=== PATIENT | female | born 1980 | race Caucasian/White ===

== ENCOUNTER 2016-06-10 08:04 | Outpatient (RCR) | payer MEDICAID ==
[~2016-06-10 08:04] MED LIST: ACET-2267 PO; ACHD5005 PO; ALDACTONE25 MG; AMOX500C2 PO; ATIVAN PO; BUDE10.2 IH; CETI10TA17 PO; CHOL4PAC17 PO; CHOL4PAC19 PO; CLON0.5T3 PO; CLON1TAB36 PO; CLONAZEPAM; CPR500T PO; CYCL10TA9 PO; DCS100C PO; DICY10CA26 PO; DICY20TA57 PO; DIME50TA PO; DIPH1TAB PO; DULO60CA6 PO; FLUO20CA42 PO; FLUT16SP22 NS; FLUT1DIS26 IH; FURO40TA4 PO; GUAI5SYR PO; HYDR-2890 PO; HYDR-34 PO; HYDR-3720 PO; HYDR118S10 PO; HYDR1CAP2 PO; HYDR25CA5 PO; HYDR50CA PO; IBP600T1 PO; IBUP-30 PO; LISI10TA2 PO; LORA1TAB PO; MELA1TAB9 PO; METO-333 PO; METO-354 PO; METO100T2 PO; MONT10TA21 PO; MTP25TSR; NAPR-243 PO; NF-XOP-HFA IH; OXYC1TAB87 PO; PARO20TA5 PO; PNT40TEC PO; POTA20TA8 PO; PRCD5U PO; PRM25T PO; PROP10TA8 PO; RT-ALBUINH IH; TRAM50TA2 PO; TRIAMTERENE/HCTZ
== END 2016-09-08 | disposition home or self-care (01) ==
LOC: PULM 08:04
PROVIDERS: ATTEND Internal Medicine Critical Care Medicine
DX: J96.11 Chronic respiratory failure with hypoxia (principal)
CPT/HCPCS: 99211

== ENCOUNTER → 2016-10-14 | Outpatient (CLI) | payer MEDICAID ==
[2016-10-14 08:41] LABS: CALCIUM 9.4 MG/DL (8.5-10.1); CREATININE SERUM 1.09 MG/DL (0.60-1.30); POTASSIUM 3.1 MMOL/L (3.6-5.0)
== END ==
LOC: LAB 08:08
PROVIDERS: ATTEND Internal Medicine Critical Care Medicine
DX: I27.0 Primary pulmonary hypertension (principal); Z79.899 Other long term (current) drug therapy
CPT/HCPCS: 36415; 80048

== ENCOUNTER 2018-08-27 08:39 | Emergency (ER) | payer MEDICAID ==
[~2018-08-27] VITALS: Ht 175.3 cm; Wt 140.6 kg
[~2018-08-27 08:39] MED LIST changes: +METO100T12 PO; -METO100T2 PO
--- NOTE | 2018-08-27 10:06 | ED Abdominal Pain ---
General Chief Complaint: Abdominal/GI Problems Stated Complaint: RECTAL BLEEDING;ABD PAIN Nursing Triage Note: pt presents to ed with complaints of abdominal pain, constipation, and rectal bleeding starting last night. pt reports she struggled passing a bowel movement yesterday evening and now has rectal bleeding. Sepsis Screen: No Definite Risk Source of Information: Patient Exam Limitations: No Limitations History of Present Illness Date Seen by Provider: Aug 27, 2018 Time Seen by Provider: 09:56 Initial Comments Here with report of lower abdominal pain and constipation return to diarrhea this morning. Reports passing blood in her stool late yesterday and early this morning. Has had history of C. difficile in the past and is currently under evaluation for that. Bleeding is not persistent. She states that she just does not feel well. She is here with her mother who is also sick. She has been caring for her sick mother for the last 2 weeks that she has been in and out of the hospital. Does have some nausea. Blood started after a large bowel movement after she had been constipated. Timing/Duration: 1-2 Days Severity/Quality: Mild, Moderate, Cramping Location: Generalized Abdomen Radiation: No Radiation Activities at Onset: None Modifying Factors: Improves With Defecating; Worsens With Eating; Improves With Resting Associated Symptoms: No Back Pain, No Chest Pain, No Fever/Chills, No Shortness of Air, No Weakness Allergies and Home Medications Allergies Coded Allergies: diclofenac (Unverified Allergy, Unknown, 03/10/14) ketorolac tromethamine (Unverified Allergy, Unknown, 03/10/14) meloxicam (Verified Allergy, Unknown, 03/10/14) amitriptyline (Verified Adverse Reaction, Unknown, DOESN'T REMEMBER REACTION, 03/10/14) buspirone (Verified Adverse Reaction, Unknown, DOESN'T WORK, 03/10/14) hydromorphone (Verified Adverse Reaction, Unknown, MEMORY LOSS, , 03/10/14) Uncoded Allergies: "MOST NSAIDS" (Allergy, Unknown, 03/10/14) Home Medications Acetaminophen 500 Mg Tablet, 1,000 MG PO Q6H PRN for PAIN, (Reported) TAKES 2 (500MG) TABLETS Albuterol Sulfate 8.5 Gm Hfa.aer.ad, 2 PUFF IH Q4H PRN for SHORTNESS OF BREATH, (Reported) Budesonide/Formoterol Fumarate 10.2 Gm Hfa.aer.ad, 2 PUFF IH BID, (Reported) Cetirizine HCl 10 Mg Tablet, 10 MG PO DAILY, (Reported) Dimenhydrinate 50 Mg Tab.chew, 100 MG PO HS, (Reported) Diphenoxylate HCl/Atropine 1 Each Tablet, 1 TAB PO Q6H, (Reported) Fluticasone Propionate 16 Gm Flomot.susp, 2 SPRAYS NS DAILY PRN for DRAINAGE, ( Reported) Fluticasone/Salmeterol 1 Each Blst.w.dev, 1 PUFF IH BID, (Reported) Furosemide 40 Mg Tablet, 40 MG PO DAILY, (Reported) Ibuprofen 200 Mg Tablet, 800 MG PO DAILY PRN for PAIN, (Reported) TAKES 4 (200MG) TABLETS Lisinopril 10 Mg Tablet, 10 MG PO HS, (Reported) Melatonin/Pyridoxine HCl (B6) 1 Each Tablet, 1 MG PO HS PRN for SLEEP, (Reported ) Metoprolol Tartrate 100 Mg Tablet, 100 MG PO BID, (Reported) Montelukast Sodium 10 Mg Tablet, 10 MG PO DAILY, (Reported) Ondansetron 4 Mg Tab.rapdis, 4 MG PO Q6H PRN for NAUSEA/VOMITING Prescribed by: SANAM VAN on 08/27/18 1227 Paroxetine HCl 20 Mg Tablet, 20 MG PO HS, (Reported) Potassium Chloride 20 Meq Tab.er.prt, 20 MEQ PO DAILY, (Reported) Patient Home Medication List Home Medication List Reviewed: Yes Review of Systems Review of Systems Constitutional: see HPI; No chills, No fever; weakness EENTM: No Symptoms Reported Respiratory: No Symptoms Reported Cardiovascular: Denies Chest Pain, Denies Edema Gastrointestinal: Abdominal Pain, Blood Streaked Stools, Constipated, Diarrhea , Nausea Genitourinary: No Symptoms Reported Musculoskeletal: no symptoms reported Skin: no symptoms reported Psychiatric/Neurological: No Symptoms Reported All Other Systems Reviewed Negative Unless Noted: Yes Past [id number]-[id number] Hx Past Med/Social Hx: Reviewed Nursing Past Med/Soc Hx Patient Social History Alcohol Use: Denies Use Recreational Drug Use: No (TOBACCO) Smoking Status: Former Smoker Former Smoker, Quit: Aug 13, 2018 Recent Foreign Travel: No Contact w/Someone Who Travel: No Recent Infectious Disease Expo: No Physical Abuse: No Sexual Abuse: No Mistreated: No Fear: No Immunizations Up To Date Date of Pneumonia Vaccine: Aug 11, 2011 Date of Influenza Vaccine: May 11, 2011 Seasonal Allergies Seasonal Allergies: No Past Medical History Surgeries: Yes (RIGHT KNEE) Gallbladder, Hysterectomy, Orthopedic Respiratory: Yes (PULM HYPERTENSION) Asthma Cardiac: Yes (R BBB, LEAKY VALVE, congestive heart failure) High Cholesterol, Hypertension Neurological: No Reproductive Disorders: Yes (CHRONIC PELVIC PAIN , DUB/DYSMENORRHEA) BUSINESS CONTINUITY SPECIALIST History: Hysterectomy Gastrointestinal: Yes (MAL ABSORBTION, relapsing c-diff, ) Colitis, Gastroesophageal Reflux, Perez's Esophagus Musculoskeletal: Yes (SELF-DIAGNOSIS OF RLS) Fibromyalgia, Scoliosis, Chronic Back Pain Endocrine: Yes (OBESITY) Cancer: No Psychosocial: Yes (EXTENSIVE PSYCH ISSUES) Anxiety, Bipolar, Personality Disorder, Depression Integumentary: No Blood Disorders: No Family Medical History Reviewed Nursing Family Hx Abdominal aortic aneurysm 19 MOTHER Family history: Arthritis 19 MOTHER Family history: Cardiovascular disease G8 SISTER Family history: Diabetes mellitus 19 MOTHER Family history: Hypertension 19 FATHER 19 MOTHER Heart disease 19 MOTHER G8 SISTER Stroke 19 MOTHER No Family History of: Alcoholism Cancer Family history: Alzheimer's disease Family history: Asthma Family history: Breast disease Family history: Gastrointestinal disease Family history: Thyroid disorder Hereditary disease History of - anemia History of - respiratory disease Kidney disease Myocardial infarction Parkinson's disease Psychotic disorder Seizure disorder Physical Exam Vital Signs Vital Signs - First Documented 08/27/18 09:31 Temp 98.1 Pulse 65 Resp 20 B/P (MAP) 118/61 (80) Pulse Ox 97 Capillary Refill : Less Than 3 Seconds Height/Weight/BMI Height: 5'9.00" Weight: 310lbs. oz. [id number]; 37.59 BMI Method:Stated General Appearance: WD/WN, no apparent distress HEENT: PERRL/EOMI, pharynx normal Neck: full range of motion, supple Respiratory: lungs clear, normal breath sounds Cardiovascular: regular rate, rhythm, no murmur Gastrointestinal: soft; No guarding, No rebound; tenderness (mild diffuse) Rectal: heme positive stool; No hemorrhoids, No mass, No tenderness Extremities: non-tender, normal inspection Back: normal inspection, no CVA tenderness, no vertebral tenderness Neurologic/Psychiatric: alert, oriented x 3 Skin: normal color, warm/dry Progress/Results/Core Measures Results/Orders Lab Results Laboratory Tests Test 08/27/18 09:26 08/27/18 09:28 Range/Units White Blood Count 8.9 4.3-11.0 10^3/uL Red Blood Count 5.01 4.35-5.85 10^6/uL Hemoglobin 15.8 11.5-16.0 G/DL Hematocrit 47 35-52 % Mean Corpuscular Volume 94 80-99 FL Mean Corpuscular Hemoglobin 32 25-34 PG Mean Corpuscular Hemoglobin Concent 34 32-36 G/DL Red Cell Distribution Width 14.5 10.0-14.5 % Platelet Count 271 130-400 10^3/uL Mean Platelet Volume 12.1 H 7.4-10.4 FL Neutrophils (%) (Auto) 71 42-75 % Lymphocytes (%) (Auto) 18 12-44 % Monocytes (%) (Auto) 8 0-12 % Eosinophils (%) (Auto) 3 0-10 % Basophils (%) (Auto) 0 0-10 % Neutrophils # (Auto) 6.3 1.8-7.8 X 10^3 Lymphocytes # (Auto) 1.6 1.0-4.0 X 10^3 Monocytes # (Auto) 0.7 0.0-1.0 X 10^3 Eosinophils # (Auto) 0.3 0.0-0.3 10^3/uL Basophils # (Auto) 0.0 0.0-0.1 10^3/uL Sodium Level 140 135-145 MMOL/L Potassium Level 3.4 L 3.6-5.0 MMOL/L Chloride Level 96 L 98-107 MMOL/L Carbon Dioxide Level 33 H 21-32 MMOL/L Anion Gap 11 5-14 MMOL/L Blood Urea Nitrogen 27 H 7-18 MG/DL Creatinine 1.01 0.60-1.30 MG/DL Estimat Glomerular Filtration Rate > 60 BUN/Creatinine Ratio 27 Glucose Level 101 70-105 MG/DL Calcium Level 9.6 8.5-10.1 MG/DL Corrected Calcium 9.6 8.5-10.1 MG/DL Total Bilirubin 0.4 0.1-1.0 MG/DL Aspartate Amino Transf (AST/SGOT) 21 5-34 U/L Alanine Aminotransferase (ALT/SGPT) 13 0-55 U/L Alkaline Phosphatase 70 40-136 U/L C-Reactive Protein High Sensitivity 1.61 H 0.00-0.50 MG/DL Total Protein 7.2 6.4-8.2 GM/DL Albumin 4.0 3.2-4.5 GM/DL Urine Color YELLOW Urine Clarity CLEAR Urine pH 7 5-9 Urine Specific [place] 1.005 L 1.016-1.022 Urine Protein NEGATIVE NEGATIVE Urine Glucose (UA) NEGATIVE NEGATIVE Urine Ketones NEGATIVE NEGATIVE Urine Nitrite NEGATIVE NEGATIVE Urine Bilirubin NEGATIVE NEGATIVE Urine Urobilinogen NORMAL NORMAL MG/DL Urine Leukocyte Esterase NEGATIVE NEGATIVE Urine RBC (Auto) NEGATIVE NEGATIVE Urine RBC NONE /HPF Urine WBC RARE /HPF Urine Squamous Epithelial Cells 5-10 /HPF Urine Crystals NONE /LPF Urine Bacteria FEW H /HPF Urine Casts PRESENT /LPF Urine Hyaline Casts 5-10 H /LPF Urine Mucus NEGATIVE /LPF Urine Culture Indicated NO Micro Results Microbiology 08/27/18 Influenza Types A,B Antigen (MARKO) - Final, Complete My Orders Orders - SANAM VAN MD Cbc With Automated Diff (08/27/18 10:03) Comprehensive Metabolic Panel (08/27/18 10:03) Hs C Reactive Protein (08/27/18 10:03) Ua Culture If Indicated (08/27/18 10:03) Fecal Occult Bedside (08/27/18 10:03) Fentanyl Injection (Sublimaze Injection (08/27/18 10:11) Ondansetron Injection (Zofran Injectio (08/27/18 10:15) Influenza A And B Antigens (08/27/18 11:42) Medications Given in ED Current Medications Medications Dose Ordered Sig/Zan Route Start Time Stop Time Status Last Admin Dose Admin Ondansetron HCl 4 mg ONCE ONCE IVP 08/27/18 10:15 08/27/18 10:16 DC 08/27/18 10:33 4 MG Vital Signs/I&O 08/27/18 09:31 Temp 98.1 Pulse 65 Resp 20 B/P (MAP) 118/61 (80) Pulse Ox 97 Blood Pressure Mean: 80 Progress Progress Note : Progress Note Seen and evaluated. IV, labs, Hemoccult stool, normal saline 500 mL bolus, Zofran 4 mg IV and fentanyl 50 micrograms IV ordered. Monitor patient. Stool was heme positive. Influenza screen ordered. Labs reviewed and no acute findings. I did discuss with the patient the need and importance for colonoscopy or surgical evaluation due to the blood in the stool. She has normal blood count currently so this can be done outpatient. Patient agreed. Discharged home with return precautions. Patient verbalize understanding instructions and agreement with plan. Departure Impression Primary Impression: Abdominal wall pain Additional Impressions: Acute diarrhea Occult blood in stools Disposition: HOME, SELF-CARE Condition: Stable Departure-Patient Inst. Decision time for Depature: 12:25 Referrals: CARMELA GONCALVES WEN-CHOU MD (PCP/Family) Primary Care Physician Patient Instructions: Acute Abdomen (Belly Pain), Adult (DC), Diarrhea in Adolescents and Adults, Gastrointestinal Bleeding (DC) Add. Discharge Instructions: All discharge instructions reviewed with patient and/or family. Voiced understanding. Call Dr. Goncalves's office today for appointment for evaluation and possible colonoscopy due to concerns related to blood in her stool. Return for worse pain, fever, vomiting, weakness, breathing problems or other concerns as needed. Continue home medications as previously prescribed. Clear liquid diet for 24 hours and then advance as tolerated. Scripts Ondansetron (Ondansetron Odt) 4 Mg Tab.rapdis 4 MG PO Q6H PRN for NAUSEA/VOMITING, #8 TAB 0 Refills Prov: SANAM VAN MD 08/27/18 SANAM VAN MD Aug 27, 2018 10:06
[2018-08-27 10:08] LABS: BASOPHILS % (AUTO) 0 % (0-10); EOSINOPHILS # (AUTO) 0.3 10^3/uL (0.0-0.3); EOSINOPHILS % (AUTO) 3 % (0-10); HEMATOCRIT 47 % (35-52); HEMOGLOBIN 15.8 G/DL (11.5-16.0); LYMPHOCYTES # (AUTO) 1.6 X 10^3 (1.0-4.0); LYMPHOCYTES % (AUTO) 18 % (12-44); MEAN CORPUSCULAR HEMOGLOBIN 32 PG (25-34); MEAN CORPUSCULAR HGB CONC 34 G/DL (32-36); MEAN CORPUSCULAR VOLUME 94 FL (80-99); MEAN PLATELET VOLUME 12.1 FL (7.4-10.4); MONOCYTES # (AUTO) 0.7 X 10^3 (0.0-1.0); MONOCYTES % (AUTO) 8 % (0-12); NEUTROPHILS # (AUTO) 6.3 X 10^3 (1.8-7.8); NEUTROPHILS % (AUTO) 71 % (42-75); PLATELET COUNT 271 10^3/uL (130-400); RED BLOOD COUNT 5.01 10^6/uL (4.35-5.85); RED CELL DISTRIBUTION WIDTH 14.5 % (10.0-14.5); WHITE BLOOD COUNT 8.9 10^3/uL (4.3-11.0)
[2018-08-27] MEDS ORDERED: fentaNYL INJECTION 100 MCG/2 ML AMP IVP STA (10:11)
[2018-08-27 10:13] LABS: BILIRUBIN,URINE NEGATIVE (NEGATIVE); CLARITY,URINE CLEAR; COLOR,URINE YELLOW; GLUCOSE, URINE (UA) NEGATIVE (NEGATIVE); KETONES,URINE NEGATIVE (NEGATIVE); LEUKOCYTE ESTERASE ,URINE NEGATIVE (NEGATIVE); NITRITE,URINE NEGATIVE (NEGATIVE); PH,URINE 7 (5-9); PROTEIN,URINE NEGATIVE (NEGATIVE); UROBILINOGEN,URINE NORMAL (NORMAL)
[2018-08-27 10:15] LABS: BACTERIA,URINE FEW /HPF; WBC,URINE RARE /HPF
[2018-08-27] MEDS ORDERED: ONDANSETRON 4 MG/2 ML (SDV) Z0FRAN IVP ONE (10:15)
[2018-08-27 10:20] LABS: ALANINE AMINOTRANSFERASE 13 U/L (0-55); ALKALINE PHOSPHATASE 70 U/L (40-136); BILIRUBIN,TOTAL 0.4 MG/DL (0.1-1.0); BUN/CREATININE RATIO 27; CALCIUM 9.6 MG/DL (8.5-10.1); CARBON DIOXIDE 33 MMOL/L (21-32); CHLORIDE 96 MMOL/L (98-107); CREATININE SERUM 1.01 MG/DL (0.60-1.30); GFR ESTIMATED > 60; GLUCOSE 101 MG/DL (70-105); POTASSIUM 3.4 MMOL/L (3.6-5.0); SODIUM 140 MMOL/L (135-145); TOTAL PROTEIN 7.2 GM/DL (6.4-8.2)
[2018-08-27] MEDS ORDERED: ONDA4TAB11 PO (12:27)
[2018-08-27 12:35] VITALS: BP 110/50
== END 2018-08-27 12:35 | disposition home or self-care (01) ==
LOC: EDUNIT# 08:39 → ER 08:41
DX: R10.84 Generalized abdominal pain (principal); R19.7 Diarrhea, unspecified; R19.5 Other fecal abnormalities; J45.909 Unspecified asthma, uncomplicated; I11.0 Hypertensive heart disease with heart failure; I50.9 Heart failure, unspecified; E78.00 Pure hypercholesterolemia, unspecified; I27.0 Primary pulmonary hypertension; K21.9 Gastro-esophageal reflux disease without esophagitis; F41.9 Anxiety disorder, unspecified; F31.9 Bipolar disorder, unspecified; E66.9 Obesity, unspecified; Z82.49 Family history of ischemic heart disease and other diseases of the circulatory system; Z68.37 Body mass index [BMI] 37.0-37.9, adult; Z88.4 Allergy status to anesthetic agent; Z88.8 Allergy status to other drugs, medicaments and biological substances; Z88.5 Allergy status to narcotic agent; Z87.19 Personal history of other diseases of the digestive system; Z79.51 Long term (current) use of inhaled steroids; Z87.891 Personal history of nicotine dependence; Z90.710 Acquired absence of both cervix and uterus; Z98.890 Other specified postprocedural states
CPT/HCPCS: 36415; 80053; 81000; 85025; 86141; 87804